=== PATIENT | male | born 1990 | race Two or more races ===

== ENCOUNTER 2019-04-18 10:25 | Emergency (ER) | payer SELFPAY ==
[~2019-04-18] VITALS: Ht 154.9 cm; Wt 59.0 kg
[2019-04-18 10:47] VITALS: BP 116/82
[2019-04-18] MEDS ORDERED: HYDROcodone/APAP 5/325MG 1 TAB TABLET PO ONE (11:00)
--- NOTE | 2019-04-18 11:24 | PHYS DOC ---
Past Medical History Past Medical History: No Pertinent History Past Surgical History: No Surgical History Smoking: Quit Less Than 1 Year Alcohol Use: None Drug Use: None Adult General Chief Complaint Chief Complaint: HEAD INJURY/TRAUMA HPI HPI Patient is a 28 year old male who presents after having a minivan fall off a dmitry at work and hit the side of his face. His happened approximately one hour prior to arrival. The patient denies loss of consciousness, denies dizziness reports a headache. Swelling to the left orbital. No interventions prior to arrival. Rates his pain as 10 out of 10 and throbbing. Review of Systems Review of Systems Constitutional: Denies fever or chills [] Eyes: Denies change in visual acuity, redness, but reports L eye pain [] HENT: Denies nasal congestion or sore throat [] Respiratory: Denies cough or shortness of breath [] Cardiovascular: No additional information not addressed in HPI [] GI: Denies abdominal pain, nausea, vomiting, bloody stools or diarrhea [] : Denies dysuria or hematuria [] Musculoskeletal: Denies back pain or joint pain [] Integument: Denies rash or skin lesions [] Neurologic: Reports headache denies dizziness, focal weakness or sensory changes [] Endocrine: Denies polyuria or polydipsia [] Complete systems were reviewed and found to be within normal limits, except as documented in this note. Current Medications Current Medications Current Medications Medications (Trade) Dose Ordered Sig/[facility] Start Time Stop Time Status Last Admin Dose Admin Acetaminophen/ Hydrocodone Bitart (Lortab 5/325) 1 tab 1X ONCE 04/18/19 11:00 04/18/19 11:01 DC 04/18/19 11:22 1 TAB Allergies Allergies Allergies Coded Allergies Type Severity Reaction Last Updated Verified No Known Drug Allergies 05/31/15 No Physical Exam Physical Exam Constitutional: Well developed, well nourished, no acute distress, non-toxic appearance. [] HENT: Normocephalic, traumatic, edema to L restoration, and L orbital, bilateral external ears normal, oropharynx moist, no oral exudates, nose normal. [] Eyes: PERRLA, EOMI, conjunctiva normal, no discharge. [] Neck: Normal range of motion, no tenderness, supple, no stridor. [] Cardiovascular:Heart rate regular rhythm, no murmur [] Lungs & Thorax: Bilateral breath sounds clear to auscultation [] Abdomen: Bowel sounds normal, soft, no tenderness, no masses, no pulsatile masses. [] Skin: Warm, dry, no erythema, no rash. [] Back: No tenderness, no CVA tenderness. [] Extremities: No tenderness, no cyanosis, no clubbing, ROM intact, no edema. [] Neurologic: Alert and oriented X 3, normal motor function, normal sensory function, no focal deficits noted. [] Psychologic: Affect normal, judgement normal, mood normal. [] Current Patient Data Vital Signs Vital Signs Date Time Temp Pulse Resp B/P (MAP) Pulse Ox O2 Delivery O2 Flow Rate FiO2 04/18/19 11:22 16 98 Room Air 04/18/19 10:47 98.4 64 116/82 (93) 98.4 EKG EKG [] Radiology/Procedures Radiology/Procedures [][facility] [address] [place], [place] [id number] IMAGING REPORT Signed PATIENT: DEEPTI RAY ACCOUNT: [id number] : 1990 LOCATION: ER AGE: 28 SEX: M EXAM STATUS: REG ER ORD. PHYSICIAN: RICHARD SERRANO APRN REASON: trauma PROCEDURE: CT CERVICAL SPINE WO CONTRAST CT of the head without contrast, 04/18/2019: HISTORY: Head and facial trauma The ventricles are within normal limits in size. There is no shift of the midline structures. There is no evidence of acute intracranial hemorrhage or mass effect. IMPRESSION: No acute intracranial abnormality is detected. CT of the facial bones without contrast, 04/18/2019: HISTORY: Eye trauma There is moderate mucosal thickening in the majority of the paranasal sinuses compatible with chronic sinusitis. No air-fluid levels are seen in the sinuses. No fracture is identified. The orbital contents are unremarkable. IMPRESSION: 1. No acute bony abnormality is detected. 2. Chronic paranasal sinusitis. CT of the cervical spine without contrast, 04/18/2019: HISTORY: Injury No fracture or dislocation is identified. There are slight posterior annular bulges at several levels. There is no evidence of significant spinal stenosis. The visualized paraspinous soft tissues are unremarkable. IMPRESSION: No acute cervical spine abnormality is detected. Electronically signed by: Leonid Arias MD (04/18/2019 12:04 PM) [facility] Course & Med Decision Making Course & Med Decision Making Pertinent Labs and Imaging studies reviewed. (See chart for details) Will get CT, and give pain medication. CT is negative. Will d/c home to follow up with primary care provider. Dragon Disclaimer Dragon Disclaimer This electronic medical record was generated, in whole or in part, using a voice recognition dictation system. Departure Departure Impression: Primary Impression: Head pain Disposition: HOME, SELF-CARE Condition: STABLE Referrals: NO PCP (PCP) Patient Instructions: General Headache Without Cause Additional Instructions: Thank you for visiting [facility]. We appreciate you trusting us with your care. If any additional problems come up don't hesitate to return to visit us. Please follow up with your primary care provider so they can plan additional care if needed and know about the problem that you had. If symptoms worsen come back to the Emergency Department. Any concerning symptoms that start such as chest pain, shortness of Air, weakness or numbness on one side of the body, running high fevers or any other concerning symptoms return to the ER. Problem Qualifiers Primary Impression: Head pain Headache type: unspecified Headache chronicity pattern: acute headache Intractability: not intractable Qualified Codes: R51 - Headache RICHARD SERRANO APRN Apr 18, 2019 11:24
--- NOTE | 2019-04-18 12:07 | RAD ---
CT of the head without contrast, 04/18/2019: HISTORY: Head and facial trauma The ventricles are within normal limits in size. There is no shift of the midline structures. There is no evidence of acute intracranial hemorrhage or mass effect. IMPRESSION: No acute intracranial abnormality is detected. CT of the facial bones without contrast, 04/18/2019: HISTORY: Eye trauma There is moderate mucosal thickening in the majority of the paranasal sinuses compatible with chronic sinusitis. No air-fluid levels are seen in the sinuses. No fracture is identified. The orbital contents are unremarkable. IMPRESSION: 1. No acute bony abnormality is detected. 2. Chronic paranasal sinusitis. CT of the cervical spine without contrast, 04/18/2019: HISTORY: Injury No fracture or dislocation is identified. There are slight posterior annular bulges at several levels. There is no evidence of significant spinal stenosis. The visualized paraspinous soft tissues are unremarkable. IMPRESSION: No acute cervical spine abnormality is detected. Electronically signed by: Leonid Arias MD (04/18/2019 12:04 PM) [facility]
== END 2019-04-18 12:21 | disposition home or self-care (01) ==
LOC: ER 10:25
DX: S09.8XXA Other specified injuries of head, initial encounter (principal); M54.2 Cervicalgia; Z87.891 Personal history of nicotine dependence; W20.8XXA Other cause of strike by thrown, projected or falling object, initial encounter; Y93.89 Activity, other specified; Y92.89 Other specified places as the place of occurrence of the external cause; Y99.0 Civilian activity done for income or pay
CPT/HCPCS: 70450; 70486; 72125; 99284

== ENCOUNTER 2020-02-12 18:54 | Emergency (ER) | payer SELFPAY ==
[~2020-02-12] VITALS: Ht 165.1 cm; Wt 60.0 kg
[2020-02-12 19:33] VITALS: BP 108/58
[2020-02-12] MEDS ORDERED: CYCL10TA2 PO (20:03)
[2020-02-12] MEDS ORDERED: DICL50TA2 PO (20:03)
[2020-02-12] MEDS ORDERED: METH4TAB2 PO (20:03)
--- NOTE | 2020-02-12 20:03 | PHYS DOC ---
Past Medical History Past Medical History: No Pertinent History Past Surgical History: No Surgical History Smoking Status: Never Smoker Alcohol Use: None Drug Use: None General Adult EDM: Chief Complaint: Neck Pain HPI: HPI: Patient is a 29 year old English-speaking male who presents to the ED today complaining of mild sharp intermittent neck and upper back pain, symptoms began around 430 this evening while he was walking from the bathroom. Patient denies any injury. Patient describes the pain as sharp intermittent worse on range of motion. Denies any numbness or tingling to bilateral upper extremities. States occasionally the pain radiates to bilateral upper extremities. Patient is English-speaking and interpretation is provided through the language line Review of Systems: Review of Systems: Constitutional: Denies fever or chills. [] GI: Denies abdominal pain, nausea, vomiting, bloody stools or diarrhea. [] : Denies dysuria. [] Musculoskeletal: Reports neck and upper back pain Integument: Denies rash. [] Neurologic: Denies headache, focal weakness or sensory changes. [] Psychiatric: Denies depression or anxiety. [] Heart Score: Risk Factors: Risk Factors: DM, Current or recent (<one month) smoker, HTN, HLP, family history of CAD, obesity. Risk Scores: Score 0 - 3: 2.5% MACE over next 6 weeks - Discharge Home Score 4 - 6: 20.3% MACE over next 6 weeks - Admit for Clinical Observation Score 7 - 10: 72.7% MACE over next 6 weeks - Early Invasive Strategies Allergies: Allergies: Allergies Coded Allergies Type Severity Reaction Last Updated Verified No Known Drug Allergies 05/31/15 No Physical Exam: PE: Constitutional: Well developed, well nourished, no acute distress, non-toxic appearance. [] Neck: Normal range of motion, diffuse paraspinal muscle tenderness to posterior cervical spine, no midline cervical spine tenderness, supple, no stridor. [] Skin: Warm, dry, no erythema, no rash. [] Back: No tenderness, no CVA tenderness. [] Extremities: No tenderness, no cyanosis, no clubbing, ROM intact, no edema. [] Neurologic: Alert and oriented X 3, normal motor function, normal sensory function, no focal deficits noted. [] Psychologic: Affect normal, judgement normal, mood normal. [] EKG: EKG: [] Radiology/Procedures: Radiology/Procedures: [] Course & Med Decision Making: Course & Med Decision Making Pertinent Labs and Imaging studies reviewed. (See chart for details) This is a 29-year-old male patient presenting to the ED today with muscle skeletal pain to the neck and upper back that began while walking. No known injury. No numbness or tingling to bilateral upper extremities. Patient will be discharged to home with supportive care measures. Also given prescription for Medrol Dosepak, cyclobenzaprine and diclofenac. Dragon Disclaimer: Dragon Disclaimer: This electronic medical record was generated, in whole or in part, using a voice recognition dictation system. Departure Departure Impression: Primary Impression: Neck pain Additional Impression: Acute upper back pain Disposition: HOME, SELF-CARE Condition: STABLE Referrals: NO PCP (PCP) follow up with your doctor in 1-2 weeks Patient Instructions: Back Pain, Adult Additional Instructions: You were evaluated in the emergency room for neck and upper back pain, use the prescribed medications as ordered. Follow-up with your doctor in 1 to 2 weeks Scripts Cyclobenzaprine Hcl (CYCLOBENZAPRINE HCL) 10 Mg Tablet 1 TAB PO TID, #30 TAB Prov: HANSA PASTOR APRN 02/12/20 Diclofenac Potassium (DICLOFENAC POTASSIUM) 50 Mg Tablet 1 TAB PO BID, #20 TAB 0 Refills Prov: HANSA PASTOR APRN 02/12/20 Methylprednisolone (MEDROL) 4 Mg Tab.ds.pk 1 PKG PO UD, #1 PKG Prov: HANSA PASTOR APRN 02/12/20 HANSA PASTOR APRN Feb 12, 2020 20:03
== END 2020-02-12 20:24 | disposition home or self-care (01) ==
LOC: ER 18:54
DX: M54.2 Cervicalgia (principal); M54.6 Pain in thoracic spine
CPT/HCPCS: 99283